=== PATIENT | male | born 1945 | race Caucasian/White ===

== ENCOUNTER 2018-01-02 08:03 | Inpatient (IN) | payer MEDICARE, BC ==
[~2018-01-02] VITALS: Ht 188 cm; Wt 100.8 kg
[~2018-01-02 08:03] MED LIST: NORCO 5-325 TA1 EACH PO
[2018-01-02] MEDS ORDERED: PEPCID40 MG/5 ML PO (08:04)
[2018-01-02] MEDS ORDERED: DIGOXIN125 MCG ORAL (08:05)
[2018-01-02 08:10] VITALS: BP 122/76
[2018-01-02] MEDS ORDERED: ALLOPURINOL300 M1 ORAL (08:11)
[2018-01-02] MEDS ORDERED: COREG12.5 MG ORAL (08:11)
[2018-01-02] MEDS ORDERED: BRILINTA90 MG PO (08:11)
[2018-01-02] MEDS ORDERED: PROTONIX40 MG ORAL (08:11)
[2018-01-02] MEDS ORDERED: ASPIR 8181 MG ORAL (08:11)
[2018-01-02] MEDS ORDERED: ELIQUIS5 MG PO (08:11)
[2018-01-02] MEDS ORDERED: DIGOXIN250 MCG ORAL (08:11)
[2018-01-02] MEDS ORDERED: ATORVASTATIN CA80 MG ORAL (08:11)
[2018-01-02 08:46] LABS: BASOPHILS % (AUTO) 1.3 % (0.0-2.0); EOSINOPHILS % (AUTO) 3.7 % (0.0-3.0); HEMATOCRIT 37.4 % (42.0-52.0); HEMOGLOBIN 13.9 G/DL (14.2-18.0); LYMPHOCYTES % (AUTO) 23.4 % (20.0-45.0); MEAN CORPUSCULAR VOLUME 92 FL (80-99); MONOCYTES % (AUTO) 11.8 % (1.0-10.0); NEUTROPHILS % (AUTO) 59.8 % (45.0-75.0); PLATELET COUNT 303 K/UL (150-450); RED BLOOD COUNT 4.07 M/UL (4.70-6.10); RED CELL DISTRIBUTION WIDTH 11.4 % (11.6-14.8); WHITE BLOOD COUNT 8.5 K/UL (4.8-10.8)
[2018-01-02 08:50] LABS: INR 1.2 (0.9-1.1)
[2018-01-02 08:52] LABS: ANION GAP 10 mmol/L (5-15); BLOOD UREA NITROGEN 15 mg/dL (7-18); CALCIUM 8.7 MG/DL (8.5-10.1); CARBON DIOXIDE 21 MMOL/L (21-32); CHLORIDE 106 MMOL/L (98-107); POTASSIUM 4.1 MMOL/L (3.5-5.1); SODIUM 137 MMOL/L (136-145)
[2018-01-02 09:07] LABS: ALANINE AMINOTRANSFERASE 36 U/L (12-78); ALBUMIN 3.3 G/DL (3.4-5.0); ALBUMIN/GLOBULIN RATIO 0.8 (1.0-2.7); ALKALINE PHOSPHATASE 65 U/L (46-116); ASPARTATE AMINO TRANSFERASE 27 U/L (15-37); CKMB 1.6 NG/ML (0.0-3.6); CREATINE KINASE 241 U/L (26-308)
--- NOTE | 2018-01-02 09:33 | Emergency Room Report ---
History of Present Illness General Chief Complaint: Upper Respiratory Illness Source: Patient, EMS Present Illness HPI Patient present with complaints of shortness of breath sensation Patient reports having 3 stents placed at [facility] recently about 10 days ago Last night while sleeping he felt short of breath That caused some mild cough Denies any chest pain however there was some mild heaviness sensation that resolved earlier Denies any vomiting or diarrhea denies any fevers or chills Patient has chronic atrial fibrillation and is on Eliquis and aspirin Allergies: Coded Allergies: No Known Allergies (Unverified , 09/21/12) Patient History Past Medical History: see triage record Pertinent Family History: none Reviewed Nursing Documentation: PMH: Agreed; PSxH: Agreed Nursing Documentation-PMH Past Medical History: No History, Except For Review of Systems All Other Systems: negative except mentioned in HPI Physical Exam Vital Signs Date Time Temp Pulse Resp B/P (MAP) Pulse Ox O2 Delivery O2 Flow Rate FiO2 01/02/18 07:58 98.0 70 18 125/77 97 Room Air 98.1 Sp02 EP Interpretation: reviewed, normal General Appearance: well appearing, no apparent distress Head: normocephalic, atraumatic Eyes: bilateral eye PERRL, bilateral eye EOMI ENT: hearing grossly normal, normal pharynx, TMs + canals normal, uvula midline Neck: full range of motion, supple, no meningismus, no bony tend Respiratory: lungs clear, normal breath sounds, no rhonchi, no respiratory distress, no retraction, no accessory muscle use Cardiovascular #1: normal peripheral pulses, no edema, no gallop, no JVD, no murmur, irregularly irregular Gastrointestinal: normal bowel sounds, non tender, soft, no mass, no organomegaly, non-distended, no guarding, no hernia, no pulsatile mass, no rebound Genitourinary: no CVA tenderness Musculoskeletal: normal inspection Neurologic: oriented x3, responsive, 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, motor strength/ tone normal, sensory intact Psychiatric: mood/affect normal Skin: normal color, no rash, warm/dry, palpation normal Lymphatic: normal inspection, no adenopathy Medical Decision Making Diagnostic Impression: Primary Impression: CHF (congestive heart failure) Additional Impressions: Acute coronary syndrome Elevated troponin I level ER Course Patient is a fairly complex patient with multiple differential to consideration including but not limited to cardiac cardiopulmonary and vascular emergencies Patient's troponin level is elevated BNP is elevated and x-ray showing some signs of CHF Patient provided with diuretics cardiology consulted and admitting for further inpatient care Labs Test 01/02/18 08:30 01/02/18 14:35 01/02/18 16:20 01/03/18 07:55 White Blood Count 8.5 K/UL (4.8-10.8) Red Blood Count 4.07 M/UL (4.70-6.10) Hemoglobin 13.9 G/DL (14.2-18.0) Hematocrit 37.4 % (42.0-52.0) Mean Corpuscular Volume 92 FL (80-99) Mean Corpuscular Hemoglobin 34.1 PG (27.0-31.0) Mean Corpuscular Hemoglobin Concent 37.2 G/DL (32.0-36.0) Red Cell Distribution Width 11.4 % (11.6-14.8) Platelet Count 303 K/UL (150-450) Mean Platelet Volume 8.8 FL (6.5-10.1) Neutrophils (%) (Auto) 59.8 % (45.0-75.0) Lymphocytes (%) (Auto) 23.4 % (20.0-45.0) Monocytes (%) (Auto) 11.8 % (1.0-10.0) Eosinophils (%) (Auto) 3.7 % (0.0-3.0) Basophils (%) (Auto) 1.3 % (0.0-2.0) Prothrombin Time 12.3 SEC (9.30-11.50) Prothromb Time International Ratio 1.2 (0.9-1.1) Activated Partial Thromboplast Time 36 SEC (23-33) Sodium Level 137 MMOL/L (136-145) 138 MMOL/L (136-145) Potassium Level 4.1 MMOL/L (3.5-5.1) 3.3 MMOL/L (3.5-5.1) Chloride Level 106 MMOL/L (98-107) 103 MMOL/L (98-107) Carbon Dioxide Level 21 MMOL/L (21-32) 25 MMOL/L (21-32) Anion Gap 10 mmol/L (5-15) 10 mmol/L (5-15) Blood Urea Nitrogen 15 mg/dL (7-18) 15 mg/dL (7-18) Creatinine 1.0 MG/DL (0.55-1.30) 1.1 MG/DL (0.55-1.30) Estimat Glomerular Filtration Rate mL/min (>60) mL/min (>60) Glucose Level 113 MG/DL (74-106) 114 MG/DL (74-106) Calcium Level 8.7 MG/DL (8.5-10.1) 8.8 MG/DL (8.5-10.1) Total Bilirubin 1.0 MG/DL (0.2-1.0) Aspartate Amino Transf (AST/SGOT) 27 U/L (15-37) Alanine Aminotransferase (ALT/SGPT) 36 U/L (12-78) Alkaline Phosphatase 65 U/L (46-116) Total Creatine Kinase 241 U/L (26-308) Creatine Kinase MB 1.6 NG/ML (0.0-3.6) Creatine Kinase MB Relative Index 0.6 Troponin I 0.236 ng/mL (0.000-0.056) 0.174 ng/mL (0.000-0.056) Pro-B-Type Natriuretic Peptide 2807 pg/mL (0-125) Total Protein 7.4 G/DL (6.4-8.2) Albumin 3.3 G/DL (3.4-5.0) Globulin 4.1 g/dL Albumin/Globulin Ratio 0.8 (1.0-2.7) Lipase 112 U/L (73-393) Urine Color Yellow Urine Appearance Clear Urine pH 5 (4.5-8.0) Urine Specific [place] 1.015 (1.005-1.035) Urine Protein Negative (NEGATIVE) Urine Glucose (UA) Negative (NEGATIVE) Urine Ketones Negative (NEGATIVE) Urine Occult Blood 1+ (NEGATIVE) Urine Nitrite Negative (NEGATIVE) Urine Bilirubin Negative (NEGATIVE) Urine Urobilinogen Normal MG/DL (0.0-1.0) Urine Leukocyte Esterase Negative (NEGATIVE) Urine RBC 0-2 /HPF (0 - 0) Urine WBC 0-2 /HPF (0 - 0) Urine Squamous Epithelial Cells None /LPF (NONE/OCC) Urine Bacteria None /HPF (NONE) Magnesium Level 2.3 MG/DL (1.8-2.4) Digoxin Level 0.7 NG/ML (0.5-2.0) EKG Diagnostic Results Rate: normal Rhythm: other - Atrial fibrillation ST Segments: no acute changes Rhythm Strip Diag. Results EP Interpretation: yes Rate: 65 Rhythm: no PVC's, no ectopy, other - Irregularly irregular Chest X-Ray Diagnostic Results Chest X-Ray Diagnostic Results : Chest X-Ray Ordered: Yes # of Views/Limited/Complete: 1 View Indication: Chest Pain EP Interpretation: Yes Interpretation: no consolidation, no effusion, no pneumothorax, other - Cardiomegaly with pulmonary congestion Impression: Other - Acute CHF Last Vital Signs Date Time Temp Pulse Resp B/P (MAP) Pulse Ox O2 Delivery O2 Flow Rate FiO2 01/02/18 08:10 65 18 122/76 97 Room Air 01/02/18 07:58 98.0 98.1 Status: improved Disposition: ADMITTED INPATIENT Condition: Serious Referrals: NOT CHOSEN KRUPA/,REFERRING (PCP) Jaylen Flowers DO January 02, 2018 09:33
--- NOTE | 2018-01-02 09:50 | Diagnostic Imaging Report ---
Indication: Chest pain Comparison: 09/21/2012 A single view chest radiograph was obtained. Findings: Cardiac silhouette is prominent. The pulmonary vascularity is slightly more prominent than on the prior occasion. No interstitial edema definite identified at this time. IMPRESSION: Some vascular prominence without overt CHF. Correlate clinically for CHF. Obtain follow-up is needed
[2018-01-02 12:09] VITALS: BP 96/61
--- NOTE | 2018-01-02 13:26 | Cardiology Progress Note ---
Assessment/Plan Assessment/Plan [id number] chf mr icm cap s/p 3 stent cx, om , rca perm afib Objective Last 24 Hour Vital Signs Date Time Temp Pulse Resp B/P (MAP) Pulse Ox O2 Delivery O2 Flow Rate FiO2 01/02/18 12:09 97.3 55 18 96/61 94 Room Air 97.3 01/02/18 08:10 65 18 122/76 97 Room Air 01/02/18 08:08 70 18 Room Air 01/02/18 07:58 98.0 70 18 125/77 97 Room Air 98.1 Laboratory Tests Test 01/02/18 08:30 White Blood Count 8.5 K/UL (4.8-10.8) Red Blood Count 4.07 M/UL (4.70-6.10) L Hemoglobin 13.9 G/DL (14.2-18.0) L Hematocrit 37.4 % (42.0-52.0) L Mean Corpuscular Volume 92 FL (80-99) Mean Corpuscular Hemoglobin 34.1 PG (27.0-31.0) H Mean Corpuscular Hemoglobin Concent 37.2 G/DL (32.0-36.0) H Red Cell Distribution Width 11.4 % (11.6-14.8) L Platelet Count 303 K/UL (150-450) Mean Platelet Volume 8.8 FL (6.5-10.1) Neutrophils (%) (Auto) 59.8 % (45.0-75.0) Lymphocytes (%) (Auto) 23.4 % (20.0-45.0) Monocytes (%) (Auto) 11.8 % (1.0-10.0) H Eosinophils (%) (Auto) 3.7 % (0.0-3.0) H Basophils (%) (Auto) 1.3 % (0.0-2.0) Prothrombin Time 12.3 SEC (9.30-11.50) H Prothromb Time International Ratio 1.2 (0.9-1.1) H Activated Partial Thromboplast Time 36 SEC (23-33) H Sodium Level 137 MMOL/L (136-145) Potassium Level 4.1 MMOL/L (3.5-5.1) Chloride Level 106 MMOL/L (98-107) Carbon Dioxide Level 21 MMOL/L (21-32) Anion Gap 10 mmol/L (5-15) Blood Urea Nitrogen 15 mg/dL (7-18) Creatinine 1.0 MG/DL (0.55-1.30) Estimat Glomerular Filtration Rate mL/min (>60) Glucose Level 113 MG/DL (74-106) H Calcium Level 8.7 MG/DL (8.5-10.1) Total Bilirubin 1.0 MG/DL (0.2-1.0) Aspartate Amino Transf (AST/SGOT) 27 U/L (15-37) Alanine Aminotransferase (ALT/SGPT) 36 U/L (12-78) Alkaline Phosphatase 65 U/L (46-116) Total Creatine Kinase 241 U/L (26-308) Creatine Kinase MB 1.6 NG/ML (0.0-3.6) Creatine Kinase MB Relative Index 0.6 Troponin I 0.236 ng/mL (0.000-0.056) Pro-B-Type Natriuretic Peptide 2807 pg/mL (0-125) H Total Protein 7.4 G/DL (6.4-8.2) Albumin 3.3 G/DL (3.4-5.0) L Globulin 4.1 g/dL Albumin/Globulin Ratio 0.8 (1.0-2.7) L Lipase 112 U/L (73-393) MESSI ARIZA January 02, 2018 13:26
[2018-01-02] MEDS ORDERED: Mylanta II UD 30ml ORAL PRN (13:30)
[2018-01-02] MEDS ORDERED: Nitroglycerin Subl 0.4mg tab SL PRN (13:30)
[2018-01-02] MEDS ORDERED: Miralax 17gm pkt ORAL PRN (13:30)
[2018-01-02] MEDS: TICAGRELOR ORAL SCH ×2 (14:00→21:16)
[2018-01-02 16:00] VITALS: BP 120/69
--- NOTE | 2018-01-02 16:27 | Cardiology Report ---
APPROVED REPORT EXAM: Two-dimensional and M-mode echocardiogram with Doppler and color Doppler. INDICATION Congestive Heart Failure M-Mode DIMENSIONS IVSd0.7 (0.7-1.1cm)Left Atrium (MM)4.5 (1.6-4.0cm) LVDd4.5 (3.5-5.6cm)Aortic Root3.0 (2.0-3.7cm) PWd0.8 (0.7-1.1cm)Aortic Cusp Exc.2.0 (1.5-2.0cm) LVDs2.5 (2.5-4.0cm) PWs1.1 cm Technically difficult study due to poor acoustical windows wall motion is poorly visualized in many views . Study recorded during bradycardia Normal left ventricular chamber size, systolic function and wall motion however the inferior wall appears akinetic and thinned distal posterior wall appear hypokinetic to the extent visualized . Left ventricular ejection fraction estimated to be 45-50%. No evidence of left ventricular hypertrophy. Small posterior pericardial effusion. Mild left atrial enlargement by 2D. Mild right atrial and right ventricular enlargement by 2D. Focal aortic valve sclerosis with adequate cusp excursion. Thickened mitral valve leaflets with normal excursion. Mild mitral annulus and aortic root calcification. Pulmonic valve not well visualized. Normal tricuspid valve structure. IVC is normal in size and collapsible with respiration. A color flow and spectral Doppler study was performed and revealed: Trace aortic regurgitation. Moderate mitral regurgitation. Normal mitral diastolic function. Trace tricuspid regurgitation. Tricuspid systolic velocities suggests peak right ventricular systolic pressure of 22 mmHg
[2018-01-02 16:56] LABS: APPEARANCE,URINE CLEAR; BILIRUBIN, URINE NEGATIVE (NEGATIVE); GLUCOSE, URINE (UA) NEGATIVE (NEGATIVE); KETONES,URINE NEGATIVE (NEGATIVE); LEUKOCYTE ESTERASE ,URINE NEGATIVE (NEGATIVE); NITRITE,URINE NEGATIVE (NEGATIVE); PH,URINE 5 (4.5-8.0); PROTEIN,URINE NEGATIVE (NEGATIVE); UROBILINOGEN,URINE NORMAL MG/DL (0.0-1.0)
[2018-01-02] MEDS: Eliquis 2.5mg tablet ORAL SCH (17:07)
[2018-01-02 17:28] LABS: COLOR,URINE YELLOW
[2018-01-02 20:00] VITALS: BP 106/67
[2018-01-02] MEDS: Atorvastatin 80mg tab ORAL SCH (21:15)
[2018-01-02] MEDS: Docusate 100mg cap ORAL SCH (21:15)
--- NOTE | 2018-01-02 23:45 | History and Physical Report ---
DATE OF ADMISSION: 01/02/2018 CARDIOLOGY EVALUATION CONSULTING PHYSICIAN: Sujit Trevizo M.D. REFERRING PHYSICIAN: Zayda Reid M.D. REASON FOR EVALUATION: Congestive heart failure exacerbation. HISTORY OF PRESENT ILLNESS: The patient is a 72-year-old gentleman who approximately two weeks ago presented to [facility] with uncomfortable sensation in both his arms and burning sensation in the chest. At that time, diagnosis of acute myocardial infarction and cardiac catheterization revealed coronary disease. He underwent drug-eluting stent placement in the obtuse marginal, circumflex, and the right coronary artery. He had [id number] disease in the left anterior descending artery that was not needing treatment. Post cath, his ejection fraction estimated 42% with significant mitral regurgitation being documented on echocardiogram that was performed at [facility]. He did well, apparently in the initial week, he in fact went to [place], was not really active. He noticed that he would have a sensation of exhaustion with any significant activity of more than a few feet, in fact walking in the pool was exhausting, walking around became more exhausting. He was having some difficulty with falling asleep and did not really figure out until last night that the difficulty was related to shortness of breath. He uses two to three pillows, did not have any dizziness or lightheadedness on standing and no palpitation or leg swelling. He absolutely denies any pain in his chest nor in his arms that he experienced with his prior myocardial infarction, but not significant ambulation or activity post procedure. PAST MEDICAL HISTORY: Positive for history of atrial fibrillation, was managed previously on digoxin and Pradaxa that was switched over to Eliquis. Post catheterization, he was placed on triple therapy with Eliquis, Brilinta as well as aspirin that he indicates he has been compliant. His medical problems include a history of sleep apnea and atrial fibrillation. Denies any diabetes or high blood pressure. No prior history of heart attack except that was noted above. No cancer, stroke, hepatitis, tuberculosis, or asthma. No emphysema. No ulcers, kidney problems, liver problems, thyroid problems, or anemia. Otherwise, he has had shoulder surgery before. ALLERGIES: He is not allergic to any medication. SOCIAL HISTORY: He used to smoke, but quit that in the 70s. Alcohol, he drinks 2 to 3 beers at a time, but only maybe once or two times a week. He used to use marijuana, but has not done so since . REVIEW OF SYSTEMS: GASTROINTESTINAL: Positive for constipation. GENITOURINARY: Negative. PULMONARY: Positive for occasional coughing. No sputum production. CONSTITUTIONAL: Negative. NEUROLOGIC: Negative. PHYSICAL EXAMINATION: GENERAL: Shows to be middle-aged gentleman, in no respiratory distress. NECK: Supple. No jugular venous distention. LUNGS: Few crackles noted at the left base. CARDIAC: Irregular, not tachycardic, maybe on the borderline bradycardic point of view, difficult to hear. A faint systolic murmur is noted. ABDOMEN: Soft and nontender. Positive bowel sounds. EXTREMITIES: He has trace edema of the lower extremities. NEUROLOGICAL: He is awake, alert, responsive, and no respiratory distress. LABORATORY AND DIAGNOSTIC DATA: His blood tests show white count of 8.5, hemoglobin 13.9, and platelet count of 303. Sodium is 137, potassium 4.1, chloride 106, bicarbonate 21, BUN of 15, creatinine 1.0, and glucose of 113. Troponin 0.236 and a proBNP of 2807. Lipase was normal at 112. His coagulations, INR of 1.2 and a PTT of 36. A chest x-ray showed, per radiologist reading, some vascular prominence without overt CHF clinically. His electrocardiogram shows atrial fibrillation, bradycardia at a rate of 66, some T-wave inversions in V5 and V6 and a direct comparison with his last EKG of 12/22/2017, the T-wave inversions are new in V5 and V6, however, these are in the leads that he had his myocardial infarction. In fact, his admission EKG from [facility] indicates significant ST-segment elevation in II, III, aVF as well as V5 and V6 and ST-segment depression in V1 through V3 as well during that time. His chemistries really are not changed since previously. It is of note that his troponin was as high as 99 on the on 12/22/2017, approximately less than 2 weeks ago. His last echocardiogram at [facility], ejection fraction of 70% was documented with segmental wall motion abnormalities, basal inferior wall being akinetic as well as anterolateral wall akinesis and hypokinesis of the basal inferolateral wall and septal wall. He had significant mitral regurgitation, estimated severe and pulmonary artery systolic pressure at that time was only 37. ASSESSMENT AND PLAN: 1. Congestive heart failure. 2. Ischemic cardiomyopathy. 3. Recent myocardial infarction two weeks ago with troponin peak of 99. 4. Prominent atrial fibrillation, on anticoagulation. 5. Coronary artery disease, status post drug-eluting stents in the circumflex, obtuse marginal, and right coronary artery on 12/22/2017. 6. Acute systolic congestive heart failure. This patient has been admitted to the hospital, received diuretics in the emergency room to which he has responded. He has already improved in his symptoms. No diuretics will be administered. An echocardiogram will be ordered for evaluation of remaining LV systolic function and degree of mitral regurgitation. Afterload reduction with the use of CATHY inhibitors may be provided as his blood pressure allows. His Coreg will be on hold for the time being and his Brilinta as well as his Eliquis and aspirin will be continued. Of note, the patient's most recent vital signs are 96/61, but has been as high as 125/77. His oxygen saturation is 94% on room air. I will follow the patient's vital signs to assess the need of a possibility of tolerance of CATHY inhibitors before administering that drug. He will also be kept off of Coreg in the setting of acute myocardial infarction. A digoxin level will be ordered. He is somewhat bradycardic at times on the monitor and I will follow along. This case was discussed with Dr. Reid who is the patient's usual treating phlebotomy support tech. Sujit Trevizo M.D. DR: ANNIE JOB#: [id number] CC: [place]
[2018-01-03] VITALS: BP 116/58
[2018-01-03 04:00] VITALS: BP 129/70
[2018-01-03 08:00] VITALS: BP 101/48
[2018-01-03] MEDS ORDERED: Aspirin EC 81mg tab ORAL SCH (09:00)
[2018-01-03 09:02] LABS: ANION GAP 10 mmol/L (5-15); BLOOD UREA NITROGEN 15 mg/dL (7-18); CALCIUM 8.8 MG/DL (8.5-10.1); CARBON DIOXIDE 25 MMOL/L (21-32); CHLORIDE 103 MMOL/L (98-107); CREATININE 1.1 MG/DL (0.55-1.30); POTASSIUM 3.3 MMOL/L (3.5-5.1); SODIUM 138 MMOL/L (136-145)
[2018-01-03] MEDS: Docusate 100mg cap ORAL SCH ×2 (09:34→20:52)
[2018-01-03] MEDS: Eliquis 2.5mg tablet ORAL SCH ×2 (09:34→17:39)
[2018-01-03] MEDS: Aspirin Baby 81mg ORAL SCH (09:34)
[2018-01-03] MEDS ORDERED: TICAGRELOR ORAL SCH ×2 (10:00→18:00)
[2018-01-03 11:58] VITALS: BP 106/65
[2018-01-03 16:00] VITALS: BP 115/66
--- NOTE | 2018-01-03 16:21 | Cardiology Report ---
APPROVED REPORT EKG Measurement Heart [id number] A. Fib with PVCs. Left axis deviation Low voltage QRS Inferior-posterior infarct, age undetermined Abnormal ECG
--- NOTE | 2018-01-03 16:29 | Cardiology Report ---
APPROVED REPORT EKG Measurement Heart [id number] Atrial fibrillation with premature ventricular or aberrantly conducted complexes Nonspecific ST and T wave abnormality Abnormal ECG
--- NOTE | 2018-01-03 18:58 | Cardiology Progress Note ---
Subjective Cardiovascular: Denies: chest pain, lightheadedness, palpitations Respiratory: Denies: shortness of breath Gastrointestinal/Abdominal: Denies: abdominal pain Genitourinary: Denies: burning Objective Last 24 Hour Vital Signs Date Time Temp Pulse Resp B/P (MAP) Pulse Ox O2 Delivery O2 Flow Rate FiO2 01/03/18 16:00 65 01/03/18 16:00 97.6 70 18 115/66 95 Room Air 97.6 01/03/18 12:00 76 01/03/18 11:58 97.8 54 18 106/65 97 Room Air 97.8 01/03/18 09:00 58 77 86 01/03/18 08:00 70 01/03/18 08:00 97.8 58 18 101/48 96 Room Air 97.8 01/03/18 04:00 57 01/03/18 04:00 42 75 82 01/03/18 04:00 97.9 42 18 129/70 94 Room Air 97.9 01/03/18 00:00 61 01/03/18 00:00 97.9 72 18 116/58 96 Room Air 97.9 01/02/18 20:00 97.7 62 20 106/67 94 Room Air 97.7 01/02/18 20:00 66 General Appearance: alert Neck: supple Cardiovascular: irregularly irregular Respiratory/Chest: lungs clear Abdomen: non tender, soft Extremities: no swelling Intake and Output 01/02/18 01/03/18 19:00 07:00 Intake Total 400 ml 120 ml Output Total 400 ml Balance 0 ml 120 ml Intake Oral 400 ml 120 ml Output Urine Total 400 ml Laboratory Tests Test 01/03/18 07:55 Sodium Level 138 MMOL/L (136-145) Potassium Level 3.3 MMOL/L (3.5-5.1) L Chloride Level 103 MMOL/L (98-107) Carbon Dioxide Level 25 MMOL/L (21-32) Anion Gap 10 mmol/L (5-15) Blood Urea Nitrogen 15 mg/dL (7-18) Creatinine 1.1 MG/DL (0.55-1.30) Estimat Glomerular Filtration Rate mL/min (>60) Glucose Level 114 MG/DL (74-106) H Calcium Level 8.8 MG/DL (8.5-10.1) Magnesium Level 2.3 MG/DL (1.8-2.4) Troponin I 0.157 ng/mL (0.000-0.056) Digoxin Level 0.7 NG/ML (0.5-2.0) MESSI ARIZA January 03, 2018 18:58
[2018-01-03 20:00] VITALS: BP 116/73
[2018-01-03] MEDS: Atorvastatin 80mg tab ORAL SCH (20:53)
[2018-01-04] VITALS: BP 105/66
[2018-01-04 04:00] VITALS: BP 104/62
[2018-01-04] MEDS ORDERED: BRILINTA 90 MG ORAL SCH (06:00)
[2018-01-04 08:00] VITALS: BP 113/64
[2018-01-04] MEDS ORDERED: Furosemide 40mg tab ORAL SCH (09:00)
[2018-01-04] MEDS: Aspirin Baby 81mg ORAL SCH (09:14)
[2018-01-04] MEDS: Docusate 100mg cap ORAL SCH (09:15)
[2018-01-04] MEDS: Eliquis 2.5mg tablet ORAL SCH (09:15)
[2018-01-04 09:49] LABS: ANION GAP 10 mmol/L (5-15); BLOOD UREA NITROGEN 11 mg/dL (7-18); CALCIUM 8.7 MG/DL (8.5-10.1); CARBON DIOXIDE 24 MMOL/L (21-32); CHLORIDE 106 MMOL/L (98-107); POTASSIUM 3.8 MMOL/L (3.5-5.1); SODIUM 140 MMOL/L (136-145)
[2018-01-04 12:00] VITALS: BP 106/65
--- NOTE | 2018-01-05 06:45 | Discharge Summary ---
DATE OF ADMISSION: 01/02/2018 DATE OF DISCHARGE: 01/04/2018 DISCHARGE DIAGNOSES: 1. Congestive heart failure, acute systolic. 2. Ischemic cardiomyopathy. 3. Recent myocardial infarction. 4. Permanent atrial fibrillation. 5. Bradycardia. 6. Coronary disease, status post drug-eluting stent placement. HOSPITAL COURSE: This patient was admitted to the emergency room because of the symptoms consistent with congestive heart failure. He was given diuretics to which he did respond. He was noted to be significantly bradycardic at the time of admission and subsequent to that as well, although on the day of discharge, his heart rate did improve in to 60s and 70s. He did respond to the diuretics and Coreg was discontinued. He was placed on half dose of the digoxin to be resumed as an outpatient. On the day of discharge, he was walking around with the nursing staff and saturations remained adequate and he was feeling much better with ambulation. Because of his heart rate having improved, I did start him back on his digoxin of 0.125 mg a day, half the dose of the standard dose that he was receiving 0.25 mg on a daily basis, but his Coreg was discontinued. He was started on some diuretics as outpatient with 20 mg of Lasix orally , which I personally called his pharmacy in addition to 10 mEq of potassium orally to be started as outpatient. His digoxin level today after admission was 0.7. His TSH is 1.721. His proBNP did improve from 2800 down to 1600. Already, the day before discharge, he was improved. In terms of his symptoms, they are much better than he was feeling when he was approximately a week before. He is instructed to follow up with Dr. Reid, his usual captain room service next week. Of note, he did have an echocardiogram here that showed ejection fraction of 45% to 50%, only about moderate degree of mitral regurgitation was visible on his echocardiogram here, his PA pressure was only 22. He was instructed on a low-salt and fluid restricted diet and was discharged home. Sujit Trevizo M.D. DR: WHITNEY JOB#: [id number] CC:
== END 2018-01-04 14:25 | disposition home or self-care (01) | DRG 282 ==
LOC: EDBD 08:03 → EMR 08:22 → 2E 09:38 → EDBEDREQ 11:07
DX: I50.21 Acute systolic (congestive) heart failure (principal); I21.9 Acute myocardial infarction, unspecified; I25.10 Atherosclerotic heart disease of native coronary artery without angina pectoris; Z79.01 Long term (current) use of anticoagulants; I25.5 Ischemic cardiomyopathy; Z87.891 Personal history of nicotine dependence; I34.0 Nonrheumatic mitral (valve) insufficiency; I48.2 Chronic atrial fibrillation; Z95.5 Presence of coronary angioplasty implant and graft; R00.1 Bradycardia, unspecified
CPT/HCPCS: 36415; 71045; 80048; 80053; 80162; 81003; 82550; 82553; 83690; 83735; 83880; 84443; 84484; 85025; 85610; 85730; 87081; 93005; 93306; 99285; J8499